=== PATIENT | male | born 1970 | race Caucasian/White ===

== ENCOUNTER → 2018-08-28 | Outpatient (CLI) | payer BC | LOC: RAD 09:18 | DX: K76.0 Fatty (change of) liver, not elsewhere classified (principal); R10.13 Epigastric pain ==

== ENCOUNTER 2019-11-30 22:40 | Emergency (ER) | payer BC ==
[~2019-11-30] VITALS: Ht 175.3 cm; Wt 79.5 kg
[2019-11-30] MEDS ORDERED: LISINOPRIL10 MG PO (22:52)
[2019-11-30] MEDS ORDERED: PRILOSEC OTC20 MG PO (22:53)
[2019-11-30] MEDS ORDERED: SINGULAIR PO (22:53)
[2019-11-30 23:37] LABS: HEMATOCRIT 50.4 % (42.0-52.0); HEMOGLOBIN 17.3 g/dL (13.5-18.0); MEAN CELL VOLUME 90 fl (78-100); MEAN CORPUSCULAR HEMOGLOBIN 31 pg (27-31); MEAN CORPUSCULAR HGB CONC 34 g/dL (33-37); MEAN PLATELET VOLUME 9.1 fl (7.4-10.4); PLATELET COUNT 196 K/mm3 (130-400); RED BLOOD COUNT 5.62 M/mm3 (4.20-5.60); RED CELL DISTRIBUTION WIDTH 12.5 % (11.5-14.5); WHITE BLOOD COUNT 9.6 K/mm3 (4.8-10.8)
[2019-11-30 23:49] LABS: ALBUMIN 5.2 g/dL (3.5-5.0)
[2019-11-30 23:50] LABS: POTASSIUM 4.4 mmol/L (3.5-5.1)
[2019-11-30 23:51] LABS: CALCIUM 10.3 mg/dL (8.3-10.5)
[2019-11-30 23:59] LABS: BAND 2 % (0-10); LYMPHOCYTE 4 % (20-51); MONOCYTE 11 % (3-10); NEUTROPHILS 82 % (42-75)
[2019-12-01] MEDS ORDERED: METOCLOPRAMIDE10 M5 PO (01:54)
[2019-12-01 02:08] VITALS: BP 122/85
== END 2019-12-01 02:08 | disposition home or self-care (01) ==
LOC: ED 22:40
PROVIDERS: Family Medicine
DX: R11.2 Nausea with vomiting, unspecified (principal); I10 Essential (primary) hypertension; F17.290 Nicotine dependence, other tobacco product, uncomplicated
CPT/HCPCS: J2765; J7030

== ENCOUNTER 2020-12-12 09:41 | Emergency (ER) | payer BC ==
[~2020-12-12 09:41] MED LIST: LISINOPRIL10 MG PO; METOCLOPRAMIDE10 M5 PO; PRILOSEC OTC20 MG PO; SINGULAIR PO
[2020-12-12 10:22] LABS: BASO # 0.07 (0.02-0.10); EOS # 0.13 (0.04-0.40); EOS % 3.5 % (0.0-4.0); HEMATOCRIT 45.4 % (42.0-52.0); HEMOGLOBIN 15.4 g/dL (13.5-18.0); LYMPH# 1.63 (1.50-4.00); MEAN CELL VOLUME 93 fl (78-100); MEAN CORPUSCULAR HEMOGLOBIN 32 pg (27-31); MEAN CORPUSCULAR HGB CONC 34 g/dL (33-37); MEAN PLATELET VOLUME 8.7 fl (7.4-10.4); MONO # 0.48 (0.20-0.80); NEU # 1.37 (1.40-6.50); PLATELET COUNT 224 K/mm3 (130-400); RED BLOOD COUNT 4.86 M/mm3 (4.20-5.60); RED CELL DISTRIBUTION WIDTH 11.9 % (11.5-14.5); WHITE BLOOD COUNT 3.7 K/mm3 (4.8-10.8)
[2020-12-12 10:44] LABS: ALBUMIN 4.1 g/dL (3.5-5.0)
[2020-12-12 10:45] LABS: POTASSIUM 4.5 mmol/L (3.5-5.1)
[2020-12-12 10:46] LABS: CALCIUM 9.3 mg/dL (8.3-10.5)
[2020-12-12 10:47] LABS: TOTAL PROTEIN 6.7 g/dL (6.4-8.3)
[2020-12-12 10:49] LABS: TOTAL BILIRUBIN 0.6 mg/dL (0.2-1.2)
[2020-12-12 10:59] LABS: TROPONIN-I 0.22 ng/mL (<0.030)
[2020-12-12 11:02] LABS: URINE WBC 0 /hpf (0-3)
[2020-12-12 11:27] LABS: URINE APPEARANCE CLEAR; URINE BILIRUBIN NEGATIVE (NEGATIVE); URINE BLOOD NEGATIVE (NEGATIVE); URINE COLOR LT YELLOW; URINE GLUCOSE NEGATIVE (NEGATIVE); URINE KETONE NEGATIVE (NEGATIVE); URINE LEUKOCYTE ESTERASE NEGATIVE (NEGATIVE); URINE NITRATE NEGATIVE (NEGATIVE); URINE PROTEIN(semi-quant) NEGATIVE (NEGATIVE); URINE UROBILINOGEN NORMAL (NORMAL)
[2020-12-12 11:28] LABS: URINE MUCUS PRESENT (NOT PRESENT)
[2020-12-12 14:25] VITALS: BP 133/81
== END 2020-12-12 14:26 | disposition short-term general hospital (02) ==
LOC: ED 09:41
PROVIDERS: Physician Assistant
DX: R00.2 Palpitations (principal); R74.8 Abnormal levels of other serum enzymes; M25.512 Pain in left shoulder; I10 Essential (primary) hypertension; K21.9 Gastro-esophageal reflux disease without esophagitis; F17.220 Nicotine dependence, chewing tobacco, uncomplicated; Z20.822 Contact with and (suspected) exposure to COVID-19; Z79.899 Other long term (current) drug therapy

== ENCOUNTER → 2021-07-08 | Outpatient (CLI) | payer BC | LOC: RAD 07:47 | DX: I73.9 Peripheral vascular disease, unspecified (principal) ==

== ENCOUNTER → 2023-01-21 | Outpatient (CLI) | payer BC | LOC: CARDREHAB 08:39 | DX: R06.09 Other forms of dyspnea (principal) ==